=== PATIENT | male | born 1975 | race Caucasian/White ===

== ENCOUNTER 2018-10-27 10:46 | Day surgery (SDC) | payer MEDICAID ==
[2018-10-19 15:35] LABS: BASOPHILS % (AUTO) 0.4 % (0-1); EOSINOPHILS # (AUTO) 0.2 X10'3 (0-0.9); EOSINOPHILS % (AUTO) 1.9 % (0-6); LYMPHOCYTES % (AUTO) 19.4 % (21-51); MEAN CORPUSCULAR HEMOGLOBIN 29.2 PG (27.0-31.0); MEAN CORPUSCULAR VOLUME 85.7 FL (78-98); MEAN PLATELET VOLUME 7.8 FL (7.4-10.4); MONOCYTES # (AUTO) 0.7 X10'3 (0-0.9); MONOCYTES % (AUTO) 6.9 % (2-12); NEUTROPHILS # (AUTO) 7.2 X10'3 (1.8-7.7); NEUTROPHILS % (AUTO) 71.4 % (42-75); PRE OP HEMATOCRIT 47.3 % (42.0-52.0); PRE OP HEMOGLOBIN 16.1 g/dL (14.0-17.9); PRE OP PLATELET COUNT 300 X10'3 (140-440); RED BLOOD COUNT 5.52 X10'6 (4.70-6.10); RED CELL DISTRIBUTION WIDTH 12.8 % (11.5-14.5)
[2018-10-19 15:51] LABS: ALBUMIN 3.8 G/DL (3.4-5.0); ALBUMIN/GLOBULIN RATIO 1.1 (1.1-1.5); ALKALINE PHOSPHATASE 71 IU/L (46-116); BLOOD UREA NITROGEN 10 MG/DL (7-18); CALCIUM 8.8 MG/DL (8.5-10.1); CHLORIDE 103 MMOL/L (99-107); CREATININE 0.83 MG/DL (0.60-1.10); PRE OP ALT 27 U/L (30-65); PRE OP ANION GAP 7 (8-16); PRE OP AST 22 U/L (10-37); PRE OP BILIRUB, TOTAL 0.5 MG/DL (0.0-1.0); PRE OP GLUCOSE 86 MG/DL (70-104); PRE OP POTASSIUM 4.3 MMOL/L (3.4-5.1); PRE OP SODIUM 140 MMOL/L (135-145); TOTAL CARBON DIOXIDE 30.2 MMOL/L (24-32); TOTAL PROTEIN 7.2 G/DL (6.4-8.2); eGFR > 90 ML/MIN
[~2018-10-27] VITALS: Ht 180.3 cm; Wt 86.8 kg
[~2018-10-27 10:46] MED LIST: AMPH20CA11 PO; LITH150C8 PO; VANCOMYCIN INJ 1000 MG in NORMAL SALINE 250ml IV.SOLN IV ONE; ceFAZolin inj. 2,000 MG in dextrose 5%-water 100 ML IV ONE; famotidine 20mg tablet PO ONE; ringers solution, lacted 1,000 ML IV SCH
[2018-10-27 11:33] VITALS: BP 128/82
[2018-10-27 11:41] VITALS: BP 128/82
[2018-10-27] MEDS ORDERED: triamcinolone acetonide 40mg/ml inj ONE (12:51)
[2018-10-27] MEDS ORDERED: BUPIVAcaine/PF 2.5mg/ml (0.25%) 10ml vial ONE (12:51)
[2018-10-27] MEDS ORDERED: fentaNYL /PF 50mcg/ml 5ml ampule ONE (13:32)
[2018-10-27] MEDS ORDERED: midazolam 2 mg/2 ml injection ONE (13:32)
[2018-10-27] MEDS ORDERED: LIDOcaine 2% (20mg/ml) 5ml vial ONE (13:33)
[2018-10-27] MEDS ORDERED: propofol inj 20 ML IV ONE (13:33)
[2018-10-27] MEDS ORDERED: dexamethasone sod phosphate 4mg/ml inj. ONE (14:14)
[2018-10-27] MEDS ORDERED: ondansetron/PF 4mg/2ml inj ONE (14:14)
[2018-10-27] MEDS ORDERED: ringers solution, lacted 1,000 ML IV SCH (14:36)
[2018-10-27] MEDS ORDERED: ondansetron/PF 4mg/2ml inj IV PRN (14:40)
[2018-10-27] MEDS ORDERED: proCHLORperazine 10 MG/2 ml inj IV PRN (14:40)
[2018-10-27] MEDS ORDERED: meperidine/PF 25mg/ml syringe IV PRN ×3 (14:40)
[2018-10-27] MEDS ORDERED: morphine 4 MG/ML inj SYRINge IV PRN ×2 (14:40)
[2018-10-27 14:48] VITALS: BP 120/77
--- NOTE | 2018-10-27 14:48 | NUR ---
Received from OR via [facility] , accompanied by Anesthesiologist EDWAR and report given by Anesthesiolgist. PATIENT WITH 20G PIV IN RIGHT HAND RUNNING LR AT 100. ORAL AIRWAY IN PLACE RIGHT KNEE DRESSING IS CDI. + DORSALIS PEDIS. NO DRAINAGE PRESENT. Addendum: 10/27/18 at 1500 by Brandon Paredes RN, RN Amended: Links added.
[2018-10-27 14:58] VITALS: BP 130/81
[2018-10-27 15:08] VITALS: BP 122/78
[2018-10-27 15:18] VITALS: BP 129/83
--- NOTE | 2018-10-27 15:28 | NUR ---
ALL DC CRITERIA HAS BEEN MET. IV TAKEN OUT WITHOUT COMPLICATIONS. ALL INSTRUCTIONS COVERED AND ALL QUESTIONS ANSWERED. DRESSINGS CDI. OUT VIA WHEELCHAIR TO PERSONAL VEHICLE WHERE PATIENT WAS SECURED IN AND DRIVEN HOME BY FAMILY. ASSISTED IN DRESSING PATIENT. RIGHT KNEE DRESSING IS CDI. VSS. Addendum: 10/27/18 at 1550 by Brandon Paredes RN, RN Amended: Links added.
== END 2018-10-27 15:28 | disposition home or self-care (01) ==
LOC: PAS 10:46
PROVIDERS: ATTEND Orthopaedic Surgery
DX: M23.221 Derangement of posterior horn of medial meniscus due to old tear or injury, right knee (principal); M23.261 Derangement of other lateral meniscus due to old tear or injury, right knee; M22.41 Chondromalacia patellae, right knee; M25.861 Other specified joint disorders, right knee; F90.2 Attention-deficit hyperactivity disorder, combined type; F32.89 Other specified depressive episodes; M17.12 Unilateral primary osteoarthritis, left knee; F12.90 Cannabis use, unspecified, uncomplicated; Z86.69 Personal history of other diseases of the nervous system and sense organs; Z87.891 Personal history of nicotine dependence; Z87.2 Personal history of diseases of the skin and subcutaneous tissue; Z79.891 Long term (current) use of opiate analgesic; Z79.899 Other long term (current) drug therapy; Z98.890 Other specified postprocedural states
CPT/HCPCS: 29873; 29879; 29880; 36415; 80053; 82948; 85025; A6449; J0690; J1100; J2001; J2250; J2405; J2704; J3010; J3301; J3370; J3490; J7060; A6250; A7000; J7030; J7120